=== PATIENT | male | born 2000 | race Caucasian/White ===

== ENCOUNTER 2020-04-10 21:56 | Emergency (ER) | payer MEDICAID, SELFPAY ==
[2020-04-10 21:59] VITALS: BP 151/74; PULSE 103; PULSE 93; RESP 18; TEMP 37.1; O2SAT 96; O2SAT 97; BMI 18.6
[2020-04-10 22:03] VITALS: O2SAT 96
--- NOTE | 2020-04-10 22:53 | ED.VIS.GEN ---
History of Present Illness Chief Complaint: Shortness of Breath Informant: Patient Narrative: 20-year-old male presenting with cough and shortness of breath. Patient symptoms are mild, however he is concerned because his sister was exposed to someone with COVID?19. She is a healthcare worker. She did test positive and she is having mild symptoms. Patient has concern he was exposed. He wishes to be tested for COVID?19. He is able to eat and drink normally. He is making normal urine and stool. He is not requiring oxygen. He does not have chest pain. No nausea or vomiting. Past Medical History - Allergies and Home Meds Allergies/Adverse Reactions: Allergies amoxicillin [From Augmentin] Allergy (Verified 04/10/20 21:57) PT UNSURE OF REACTION clavulanic acid [From Augmentin] Allergy (Verified 04/10/20 21:57) PT UNSURE OF REACTION codeine Allergy (Verified 04/10/20 21:57) Hives sulfamethoxazole [From Bactrim] Allergy (Verified 04/10/20 21:57) Hives trimethoprim [From Bactrim] Allergy (Verified 04/10/20 21:57) Hives Primary Care Physician: NOT,DEFINED [Primary Care Provider] - Past Medical History: - - Unknown cardiac history at 14. He does not follow with anybody regularly. He does not take any cardiac medication. Smoking Status: Former smoker Review of Systems General: Reports: Chills. Denies: Fever Eyes: Denies: Visual changes - bilaterally, Diplopia ENT: Reports: Rhinorrhea, Sore throat Cardiovascular: Denies: Chest pain Respiratory: Reports: Cough. Denies: Dyspnea Gastrointestinal: Denies: Abdominal pain, Nausea, Vomiting Musculoskeletal: Reports: Myalgias Skin: Denies: Rash, Abscess Neurological: Denies: Headache, Weakness Psych: Denies: Depression, Anxiety Endocrine: Denies: Polyuria Hematologic: Denies: Easy bruising Physical Exam Vital Signs/Narrative: Vital Signs Temp Pulse Resp BP Pulse Ox 04/10/20 21:59 98.7 F 93 18 151/74 H 97 Inital Vital Signs reviewed: Yes General: Well nourished, Well developed, No Acute Distress Head: Normocephalic, Atraumatic Eyes: Perrl, EOMI. Negative for: Pale conjunctiva ENT: Moist mucous membranes, No rhinorrhea, TM's clear Cardiovascular: Regular rate, Regular rhythm Respiratory: No distress, CTA bilaterally, Chest nontender Abdomen: Soft, Nontender Back: Nontender Skin: Normal color, No rash Neurological: Alert, Oriented x3 Psychological: Normal affect Diagnostic/Tx/Re-eval Chest X-Ray - ED: 1 View, Normal - Medical Decision Making Patient presents with mild symptoms he is concerned are due to COVID?19 as he had recent exposure. His vital signs are stable and he is afebrile. He is eating and drinking normally. He is making normal urine and stool. He does not have significant medical history. He wishes to be tested for COVID?19. Swab was taken. He was given quarantine precautions. He is given return precautions. I checked a chest x-ray which was negative. Patient will stay home and quarantine until he gets his results or return for any new or worsening symptoms. ED Disposition - Plan for ED Patient: Disposition: Home or Assisted Living Diagnosis: COVID-19, URI, acute Instructions: ED Upper Resp Infec No Abx Tx Referrals: NOT,DEFINED [Primary Care Provider] -
--- NOTE | 2020-04-10 23:16 | RAD_ITS ---
STUDY: X-RAY CHEST REASON FOR EXAM: Male, 20 years old. slight sob, muscle aches, headache -- exposed to covid TECHNIQUE: Single AP portable view of the chest. COMPARISON: None. FINDINGS: Questionable infiltrate seen in the superior hilar region of the right lower lobe versus bronchovascular structures. Otherwise the bilateral lung [place] are clear. There is no demonstrated pleural abnormality. Normal size heart. Normal mediastinum and south. Normal visualized pulmonary arteries. Normal visualized aortic arch and descending thoracic aorta. Normal visualized thoracic spine. Normal visualized ribs, clavicles, and shoulders. There is no demonstrated abnormality of the visualized soft tissue structures of the upper abdomen. RAD/Chest 1 View (Portable) IMPRESSION: 1. Questionable infiltrate seen in the superior hilar region of the right lower lobe versus bronchovascular structures. Otherwise the bilateral lung villela are clear. 2. A noncontrast CT of the chest can be performed for further assessment particularly given the patient''s clinical history. Electronically Signed: Moe Oviedo MD at 23:42 EDT , Service support ,
== END 2020-04-11 00:20 | disposition home or self-care (01) ==
LOC: ED 04-11 00:10
PROVIDERS: Emergency Provider Student in an Organized Health Care Education/Training Program
DX: U07.1 COVID-19 (principal); J06.9 Acute upper respiratory infection, unspecified; Z87.891 Personal history of nicotine dependence
CPT/HCPCS: 71045; 87635; 99282; U0003

== ENCOUNTER 2020-12-29 18:02 | Emergency (ER) | payer MEDICAID, SELFPAY ==
[2020-12-29 18:03] VITALS: BP 129/87; PULSE 87; RESP 15; TEMP 36.5; O2SAT 97; BMI 18.3
--- NOTE | 2020-12-29 18:34 | RAD_ITS ---
INDICATION: PAIN EXAMINATION/TECHNIQUE: X-RAY - RIGHT XR Hand Min 3 Views COMPARISON: None. FINDINGS: Acute minimally displaced fracture of the mid shaft of the fifth metacarpal. No blastic or lytic lesions. No degenerative changes are seen. The soft tissues are unremarkable. RAD/Hand Min 3 Views IMPRESSION: Acute minimally displaced fracture of the mid shaft of the fifth metacarpal. Electronically Signed: Gautam Lin MD at 18:54 EDT Tel , Service support ,
--- NOTE | 2020-12-29 18:35 | RAD_ITS ---
EXAM: XR LEFT HAND COMPLETE, 3 OR MORE VIEWS CLINICAL INDICATION: injury TECHNIQUE: Frontal, lateral and oblique views of the left hand. This report was created using [email or web address] report generation technology. COMPARISON: None. FINDINGS: BONES/JOINTS: Unremarkable. No displaced fracture. No destructive or sclerotic lesions. Visualized joint spaces are unremarkable. SOFT TISSUES: Unremarkable. No soft tissue swelling or gas. No radiopaque foreign body. RAD/Hand Min 3 Views IMPRESSION: Negative left hand x-rays. Electronically Signed: Hemalatha Simpson MD at 19:29 EDT Tel , Service support ,
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
--- NOTE | 2020-12-29 19:50 | ED.DEP ---
ED Disposition - Plan for ED Patient: Instructions: ED Boxer Fracture Referrals: Luis A Sandoval DO [STAFF PHYSICIAN] -
== END 2020-12-29 20:09 | disposition home or self-care (01) ==
PROVIDERS: Emergency Provider Emergency Medicine
DX: S62.306A Unspecified fracture of fifth metacarpal bone, right hand, initial encounter for closed fracture (principal); W22.01XA Walked into wall, initial encounter
CPT/HCPCS: 73130; 99282

== ENCOUNTER 2021-05-05 19:37 | Emergency (ER) | payer MEDICAID, SELFPAY ==
[2021-05-05 19:38] VITALS: BP 122/77; PULSE 89; RESP 16; TEMP 36.9; O2SAT 96; BMI 18.4
--- NOTE | 2021-05-05 19:50 | RAD_ITS ---
INDICATION: CONGESTION EXAMINATION/TECHNIQUE: X-RAY - XR Chest 1 View COMPARISON: 04/10/2020. FINDINGS: The lungs are clear. The cardiomediastinal silhouette is unremarkable. No pleural effusion or pneumothorax. No acute osseous abnormalities. RAD/Chest 1 View IMPRESSION: No acute radiographic abnormalities. Electronically Signed: Gautam Lin MD at 20:18 EDT Tel , Service support ,
--- NOTE | 2021-05-05 22:17 | EX.ED.DYSGE1 ---
HPI History of Present Illness Chief Complaint: Cold Sx Informant: patient Onset/Context/Timing Onset: Days Context: Gradual Onset Timing: Waxes and wanes Current Severity: Mild Maximum Severity: Moderate Narrative Narrative: Patient presents secondary to cough and congestion. He states for the past 5 days or so has had cough and congestion. Cough seems to be improving but he still has significant chest congestion. He denies fever. Patient denies concerns for Covid exposure. He did not receive the Covid vaccine. PFSH PFSH no medical history Home Medications guaifenesin [Mucinex] 1,200 mg PO BID PRN #10 tab 05/05/21 [Rx Last Taken Unknown] Allergy/AdvReac Type Severity Reaction Status Date / Time amoxicillin [From Augmentin] Allergy PT UNSURE Verified 05/05/21 19:40 OF REACTION clavulanic acid Allergy PT UNSURE Verified 05/05/21 19:40 [From Augmentin] OF REACTION codeine Allergy Hives Verified 05/05/21 19:40 sulfamethoxazole Allergy Hives Verified 05/05/21 19:40 [From Bactrim] trimethoprim [From Bactrim] Allergy Hives Verified 05/05/21 19:40 Social History Smoking Status: Current every day smoker tobacco type: cigarettes ROS ROS ED Constitutional Constitutional ED: Denies chills or fever(s) Eyes Eyes: Denies change in vision ENT ENT ED: Denies sore throat Cardiovascular Cardiovascular: Denies chest pain Respiratory/Chest Respiratory/Chest: Reports cough and other Details: Chest congestion ; Denies dyspnea or sputum Gastrointestinal Gastrointestinal: Denies abdominal pain, diarrhea, nausea or vomiting Genitourinary Genitourinary ED: Denies dysuria Musculoskeletal Musculoskeletal: Denies back pain Integumentary Denies rash Neurologic Neurologic: Denies headache(s) or weakness Psychiatric Psychiatric: Denies anxiety or depression Allergic/Immunologic Allergic/Immunologic ED: Denies urticaria EXAM Physical Exam Const Vital Signs: 05/05/21 19:38 05/05/21 21:01 05/05/21 22:44 Temperature 98.5 F Temperature Source Temporal Pulse Rate 89 80 Respiratory Rate 16 16 Respiratory Effort Normal Respiratory Pattern Normal Blood Pressure 122/77 H 117/78 Blood Pressure Mean 92 Pulse Ox 96 98 Oxygen Delivery Method Room Air Positive well nourished and well developed General Appearance ED: well developed HEENT Reports normocephalic and head/scalp atraumatic Eyes PERRL and EOMs intact bilaterally Neck supple Chest Wall inspection of chest normal and palpation of chest normal Resp normal respiratory effort Auscultation: diminished lung sounds Cardio regular rate and regular rhythm GI normal to inspection, nondistended, normoactive bowel sounds Palpation: soft Extremity normal to inspection Neuro oriented x3 and no sensory deficits noted Sensorium / Orientation: alert Motor Exam: strength 5/5 throughout Psych mental status grossly normal Skin no rashes or lesions noted MDM MDM MDM Narrative Medical decision making narrative: Chest x-ray ordered per nursing protocol. Radiography Chest X-Ray - ED: 1 View, Read by ED Physician, Normal, Heart, Lungs, Mediastinum and No Infiltrates Diagnostic Testing: Radiology Impression Chest X-Ray 05/05/21 19:50 IMPRESSION: No acute radiographic abnormalities. Electronically Signed: Gautam Lin MD at 20:18 EDT Tel , Service support , Treatment and Re-Evaluation Comments:: Chest x-ray per my interpretation reveals no infiltrate. Radiologist rotation is reviewed. Test results discussed with patient and family at bedside. He will be given albuterol inhaler here and a dose of Mucinex. Prescription for Mucinex was sent to the pharmacy for him. Return instructions are provided. Discharge Plan Triage Chief Complaint: Cold Sx ED Provider: Elizabeth Boyd Dx/Rx/DC Orders Clinical Impression: Bronchitis Instructions: ED Bronchitis, No Antibiotic (Adult) Prescriptions: New Mucinex 1,200 mg tablet extended release 12hr 1,200 mg PO BID PRN (Reason: congestion) Qty: 10 RF: 0 Primary Care Provider: Care Physician,No Primary Referrals: Doreen Siddiqui MD [STAFF PHYSICIAN] - As Needed Care Physician,No Primary [Primary Care Provider] - Disposition Disposition: Home, Self Care Discharge Date/Time: 05/05/21 22:46
[2021-05-05] MEDS: guaiFENesin 1,200 MG Tablet 1200 MG PO (22:42)
[2021-05-05 22:44] VITALS: BP 117/78; PULSE 80; RESP 16; O2SAT 98
== END 2021-05-05 22:46 | disposition home or self-care (01) ==
LOC: ED 22:25
PROVIDERS: Emergency Provider Emergency Medicine
DX: J40 Bronchitis, not specified as acute or chronic (principal); F17.210 Nicotine dependence, cigarettes, uncomplicated
CPT/HCPCS: 71045; 99283

== ENCOUNTER → 2023-06-28 | Outpatient (CLI) | payer MEDICAID, SELFPAY ==
[2023-06-30 21:07] LABS: QNTFERON TB Mitogen Value > 10.00 IU/mL (.); QNTFERON TB Nil Value 0 IU/mL (.); QNTFERON TB1+ Ag Value 0.04 IU/mL (.); QNTFERON TB2+ Ag Value 0.06 IU/mL (.); QNTIFERON TB Positive Criteria Negative (Negative)
== END | disposition home or self-care (01) ==
PROVIDERS: Referring Provider Physician Assistant; Visit Provider Physician Assistant
DX: Z02.1 Encounter for pre-employment examination (principal)
CPT/HCPCS: 36415; 86480

== ENCOUNTER → 2023-08-30 | Outpatient (CLI) | payer MEDICAID, SELFPAY ==
--- NOTE | 2023-08-30 14:53 | RAD_ITS ---
STUDY: X-RAY - CERVICAL SPINE REASON FOR EXAM: Male, 23 years old. Pain -- RRF, RLF paresthesias TECHNIQUE: 5 view(s) of the cervical spine were obtained. COMPARISON: None FINDINGS: Normal anterior atlantoaxial articulation. Normal odontoid process. There is reversal of the normal cervical lordosis. Normal vertebral bodies and endplates. Normal disc space heights. Normal visualized intervertebral neuroforamina. The soft tissue structures are unremarkable. RAD/Cerv Spine 4 or 5 Views IMPRESSION: There is reversal of the normal cervical lordosis. Electronically Signed: Teddy Ibarra MD at 15:39 EST ,
== END | disposition home or self-care (01) ==
LOC: MTRAD 14:53
PROVIDERS: Referring Provider Physician Assistant; Visit Provider Physician Assistant
DX: R52 Pain, unspecified (principal)
CPT/HCPCS: 72050

== ENCOUNTER 2024-09-09 02:55 | Emergency (ER) | payer SELFPAY ==
[2024-09-09 02:55] VITALS: BP 152/99; PULSE 110; RESP 16; TEMP 37.6; O2SAT 99; BMI 20.9
--- NOTE | 2024-09-09 03:22 | EX.ED.DYSGE1 ---
HPI History of Present Illness Chief Complaint: Ear Problem Informant: patient Narrative Narrative: Patient is a 24-year-old male with no significant past medical history. He states over the past 3 to 4 days he has had nasal congestion and drainage. He states in the last 12 hours he started developing right ear pain. He denies any drainage or discharge from the right ear or injury. He states that he feels he is developing an ear infection and secondary to this comes in for evaluation [facility] Medical History (Updated 09/09/24 @ 03:[address] Kaz Jha, DO) Cellulitis of right thumb Laceration of right thumb Cellulitis of right index finger Laceration of right index finger Cervical radiculopathy Cervical strain Physical exam, pre-employment Home Medications ?Medication ?Instructions ?Recorded ?Last Taken ?Type cefdinir 300 mg capsule 300 mg PO BID 10 days #20 caps 09/09/24 Unknown Rx prednisone 20 mg tablet 40 mg (2 x 20 mg) PO DAILY 7 days 09/09/24 Unknown Rx #14 tabs Allergy/AdvReac Type Severity Reaction Status Date / Time amoxicillin (From Augmentin) Allergy PT UNSURE Verified 09/09/24 02:55 OF REACTION clavulanic acid (From Allergy PT UNSURE Verified 09/09/24 02:55 Augmentin) OF REACTION codeine Allergy Hives Verified 09/09/24 02:55 sulfamethoxazole (From Allergy Hives Verified 09/09/24 02:55 Bactrim) trimethoprim (From Bactrim) Allergy Hives Verified 09/09/24 02:55 Social History Smoking Status: Current every day smoker tobacco type: cigarettes and e-cigarettes ROS ROS ED Constitutional Constitutional ED: Denies chills or fever(s) ENT ENT ED: Reports ear pain right and rhinorrhea; Denies sore throat Cardiovascular Cardiovascular: Denies chest pain Respiratory/Chest Respiratory/Chest: Reports cough; Denies dyspnea Gastrointestinal Gastrointestinal: Denies abdominal pain, diarrhea, nausea or vomiting Genitourinary Genitourinary ED: Denies dysuria Musculoskeletal Musculoskeletal: Denies myalgias Integumentary Denies rash Neurologic Neurologic: Denies headache(s) Hematologic/Lymphatic Hematologic/Lymphatic: Denies easy bleeding or easy bruising Allergic/Immunologic Allergic/Immunologic ED: Denies mouth swelling or tongue swelling EXAM Physical Exam Const Vital Signs: 09/09/24 02:55 09/09/24 03:57 Temperature 99.6 F H 97 F L Temperature Source Oral Pulse Rate 110 H 100 Respiratory Rate 16 18 Blood Pressure 152/99 H 145/93 H Blood Pressure Mean 116 110 Pulse Ox 99 97 Positive well nourished and well developed General Appearance ED: well developed; Negative for pallor HEENT Reports moist mucous membranes HEENT Narrative: Nasal mucosa is hyperemic and boggy with enlarged inferior nasal turbinates There is cobblestoning the posterior pharynx consistent with sinus drainage without airway edema or compromise No secondary findings in the posterior pharynx to suggest infection Left canal and TM are normal Right canal is normal but the TM is erythematous and bulging with positive air-fluid levels consistent with otitis media Eyes PERRL and EOMs intact bilaterally Neck supple Neck Narrative: No nuchal rigidity or meningeal signs Resp normal respiratory effort and clear to auscultation bilaterally Cardio regular rate and regular rhythm Extremity normal to inspection Neuro oriented x3, CN's II-XII intact bilaterally and no sensory deficits noted Sensorium / Orientation: alert Motor Exam: strength 5/5 throughout Psych mental status grossly normal Skin no rashes or lesions noted and no wounds General Skin Exam: Negative for jaundice or pallor MDM MDM MDM Narrative Medical decision making narrative: Patient arrived to ER hypertensive otherwise with stable vitals. He reported symptoms that are most consistent with a viral upper respiratory tract infection leading to right ear pain. Different diagnosis is for viral URI secondary to COVID versus influenza versus RSV versus otitis media versus otitis externa. By exam he does not have otitis externa or malignant otitis externa. He is not hypoxic or in respiratory distress and therefore a COVID influenza or RSV swab would not change therapy and I do not feel there is need to obtain this. As he is not having respiratory distress or hypoxia have low concern for pneumonia and there is no need for chest x-ray. Physical exam did show changes consistent with an otitis media on right which is most likely secondary to eustachian tube dysfunction from his congestion. At this time he will be placed on steroids and antibiotics based on need to reduce pressure and congestion as well as control infection but without signs of systemic infection or tympanic membrane perforation or malignant otitis externa there is no need for further workup and he is otherwise safe for discharge History & Record Review Discussion w/independent historian: Patient Discharge Plan Triage Chief Complaint: Ear Problem ED Provider: Kaz Jha Dx/Rx/DC Orders Clinical Impression: Acute right otitis media, Viral upper respiratory tract infection Instructions: ED Otitis Media Adult, ED URI, Viral W/ Wheezing (Adult) Prescriptions: New prednisone 20 mg tablet 40 mg PO DAILY 7 Days Qty: 14 0RF cefdinir 300 mg capsule 300 mg PO BID 10 Days Qty: 20 0RF Primary Care Provider: Care Physician,No Primary Referrals: Pratik Neumann MD [Med Staff - Active Staff] - Care Physician,No Primary [Primary Care Provider] - Print Language: Taiwanese Disposition Disposition: Home, Self Care Discharge Date/Time: 09/09/24 04:36
[2024-09-09] MEDS: dexAMETHasone 10 MG/ML Vial PO.IVFORM (03:38)
[2024-09-09] MEDS: Cefdinir 300 MG Capsule PO (03:56)
[2024-09-09 03:57] VITALS: BP 145/93; PULSE 100; RESP 18; TEMP 36.1; O2SAT 97
[2024-09-09] MEDS: oxyCODONE 5 MG Tablet 10 MG PO (04:35)
== END 2024-09-09 04:36 | disposition home or self-care (01) ==
PROVIDERS: Emergency Provider Emergency Medicine; Visit Provider Emergency Medicine
DX: H66.91 Otitis media, unspecified, right ear (principal); J06.9 Acute upper respiratory infection, unspecified; Z88.0 Allergy status to penicillin; Z88.1 Allergy status to other antibiotic agents; Z88.2 Allergy status to sulfonamides; F17.210 Nicotine dependence, cigarettes, uncomplicated; F17.290 Nicotine dependence, other tobacco product, uncomplicated
CPT/HCPCS: 99283

== ENCOUNTER 2024-12-28 23:41 | Emergency (ER) | payer SELFPAY ==
[2024-12-28 23:42] VITALS: PULSE 81
[2024-12-28 23:43] VITALS: BP 162/98; PULSE 98; RESP 16; TEMP 36.6; O2SAT 99; BMI 20.4
--- NOTE | 2024-12-29 00:42 | EDS_ITS ---
HPI History of Present Illness Chief Complaint: Shortness of Breath Informant: patient Narrative Narrative: Patient is a 24-year-old male with no significant past medical history. He does state that he typically smokes and/or vapes THC daily. He reports that roughly 4 to 5 days ago he had a sore throat. He states after a few days this improved but then he developed some congestion and coughing. He states today he has felt shaky and brain fog he also reports he has had a few bouts of vomiting. He denies any fevers or chills or known sick contact. However as he feels his symptoms are worsening he presents for evaluation [facility] Medical History (Updated 12/29/24 @ 00:[address] Kaz Jha, DO) Cellulitis of right thumb Laceration of right thumb Cellulitis of right index finger Laceration of right index finger Cervical radiculopathy Cervical strain Physical exam, pre-employment Home Medications ?Medication ?Instructions ?Recorded ?Last Taken ?Type ondansetron 4 mg disintegrating 4 mg PO TID PRN nausea and 12/29/24 Unknown Rx tablet vomiting #21 tabs Allergy/AdvReac Type Severity Reaction Status Date / Time amoxicillin (From Augmentin) Allergy PT UNSURE Verified 12/28/24 23:46 OF REACTION clavulanic acid (From Allergy PT UNSURE Verified 12/28/24 23:46 Augmentin) OF REACTION codeine Allergy Hives Verified 12/28/24 23:46 sulfamethoxazole (From Allergy Hives Verified 12/28/24 23:46 Bactrim) trimethoprim (From Bactrim) Allergy Hives Verified 12/28/24 23:46 Social History Smoking Status: Current every day smoker tobacco type: cigarettes and e- cigarettes ROS ROS ED Constitutional Constitutional ED: Denies chills or fever(s) Eyes Eyes: Denies change in vision ENT ENT ED: Reports rhinorrhea and sore throat Cardiovascular Cardiovascular: Denies chest pain Respiratory/Chest Respiratory/Chest: Reports cough and dyspnea Gastrointestinal Gastrointestinal: Reports nausea and vomiting; Denies abdominal pain or diarrhea Genitourinary Genitourinary ED: Denies dysuria Musculoskeletal Musculoskeletal: Reports myalgias Integumentary Denies rash Neurologic Neurologic: Denies headache(s) Hematologic/Lymphatic Hematologic/Lymphatic: Denies easy bleeding or easy bruising Allergic/Immunologic Allergic/Immunologic ED: Denies mouth swelling or tongue swelling EXAM Physical Exam Const Vital Signs: 12/28/24 23:42 12/28/24 23:43 12/28/24 23:45 Temperature 97.9 F Temperature Source Oral Pulse Rate 81 98 Respiratory Rate 16 Respiratory Effort Normal Blood Pressure 162/98 H Blood Pressure Mean 119 Pulse Ox 99 Oxygen Delivery Method Room Air 12/29/24 00:54 Temperature 97.8 F Temperature Source Pulse Rate 78 Respiratory Rate 16 Respiratory Effort Blood Pressure 149/64 H Blood Pressure Mean 92 Pulse Ox 99 Oxygen Delivery Method Positive well nourished and well developed General Appearance ED: well developed; Negative for pallor HEENT HEENT Narrative: Nasal mucosa is hyperemic and boggy There is cobblestoning noted in the posterior pharynx consistent with sinus drainage without secondary findings to suggest infection No tongue or lip swelling no oral lesions no airway edema or compromise Eyes PERRL and EOMs intact bilaterally General Eye ED: Negative for scleral icterus Neck supple and no JVD Neck Narrative: No nuchal rigidity or meningeal sign Chest Wall palpation of chest normal Resp normal respiratory effort Resp Narrative: No tachypnea nasal flaring retractions or accessory muscle use No grunting or stridor noted No dyspnea with speech There is faint expiratory wheeze noted in bilateral lower lobes Cardio regular rate and regular rhythm Rate: other Other Details: Heart is regular rate and rhythm without murmurs rubs or gallops Radial and carotid pulses are equal and symmetric GI normal to inspection, nondistended, normoactive bowel sounds, non-tender, non- distended and no masses GI Narrative: No voluntary guarding or rigidity or pulsatile mass Auscultation: normoactive bowel sounds Palpation: soft Extremity normal to inspection Extremity Narrative: No asymmetric edema no pitting edema negative Homans' sign bilaterally Neuro oriented x3, CN's II-XII intact bilaterally and no sensory deficits noted Sensorium / Orientation: alert Motor Exam: strength 5/5 throughout Psych Mood & Affect: anxious Skin no rashes or lesions noted and no wounds General Skin Exam: Negative for jaundice or pallor MDM MDM MDM Narrative Medical decision making narrative: Patient arrived to ER hypertensive otherwise with stable vitals. Constellation symptoms is most consistent with a viral infection such as COVID versus influenza versus RSV. Patient also could have potential pneumonia. With his re port of feeling shaky and bouts of vomiting there is concern for electrolyte abnormality or acute kidney injury. I discussed with patient obtaining basic abdominal labs and a chest x-ray and viral swab. He states he does not have insurance and does not want a workup performed. He reports that as his exam does not suggest any obvious signs of severe infection or significant dehydration he would prefer symptomatic treatment and home. Therefore then I will place him on albuterol inhaler to help with the dyspnea as his exam shows mild wheeze and Zofran secondary to the reports of vomiting. However as he is not hypoxic or in respiratory distress or requiring supplemental oxygen there is no need for forcing a workup and is otherwise safe for discharge History & Record Review Discussion w/independent historian: Patient Discharge Plan Triage Chief Complaint: Shortness of Breath ED Provider: Kaz Jha Dx/Rx/DC Orders Clinical Impression: Viral syndrome, Acute bronchospasm Instructions: ED Bronchospasm (Adult), ED Viral Syndrome (Adult) Prescriptions: New ondansetron 4 mg tablet,disintegrating 4 mg PO TID PRN (Reason: nausea and vomiting) Qty: 21 0RF Primary Care Provider: Care Physician,No Primary Referrals: Pratik Neumann MD [Med Staff - Active Staff] - Care Physician,No Primary [Primary Care Provider] - Activity Restrictions/Additional Instructions: Your history exam and symptoms are most consistent with a viral infection. This will last on average approximately 2 weeks and is self-limited. Use the inhaler to help with shortness of breath sensation and the Zofran for nausea and vomiting control. Return to the ER should you have any further concerns Print Language: Telugu Disposition Disposition: Home, Self Care Discharge Date/Time: 12/29/24 00:56
[2024-12-29] MEDS: Ondansetron ODT 4 MG Tablet PO (00:53)
[2024-12-29 00:54] VITALS: BP 149/64; PULSE 78; RESP 16; TEMP 36.6; O2SAT 99
[2024-12-29] MEDS: Albuterol Sulfate 8 gm Inhaler (60 puffs) 2 PUFF INHALATION (00:56)
== END 2024-12-29 00:56 | disposition home or self-care (01) ==
PROVIDERS: Emergency Provider Emergency Medicine; Visit Provider Emergency Medicine
DX: J98.01 Acute bronchospasm (principal); B34.9 Viral infection, unspecified; R11.2 Nausea with vomiting, unspecified; F17.210 Nicotine dependence, cigarettes, uncomplicated; F17.290 Nicotine dependence, other tobacco product, uncomplicated; Z88.0 Allergy status to penicillin; Z88.1 Allergy status to other antibiotic agents
CPT/HCPCS: 94640; 99282

== ENCOUNTER 2025-05-17 11:02 | Emergency (ER) | payer SELFPAY ==
[2025-05-17 11:03] VITALS: BP 129/111; PULSE 164; RESP 18; TEMP 36.6; O2SAT 96; BMI 19.8
--- NOTE | 2025-05-17 11:20 | ED.RN ---
Rn put protocol in place while patient waits for ED bed. Pt refuses bloodwork and IV at this time. Patient states I do not have insurance so I don't want to do bloodwork right now. RN states she understands.
[2025-05-17 11:56] LABS: Hematocrit 49.3 % (40-54); Hemoglobin 17.4 g/dL (13.0-16.5); Immature Granulocytes Count 0.010 X10^3/uL (0.0-0.0); Mean Corp Hgb Conc 35.3 g/dL (32-36); Mean Corpuscular Volume 93.0 fL (80-94); Mean Platelet Vol. 9.1 fl (6.2-12.0); NRBC Flagged by Analyzer 0 % (0-5); Platelet Count 249 K/mm3 (150-450); RBC Distribution Width CV 11.9 % (11.6-14.6); RBC Distribution Width SD 41.3 fl (35.1-43.9); Red Blood Count 5.30 M/mm3 (4.6-6.2); White Blood Count 5.7 K/mm3 (4.4-11.0)
--- NOTE | 2025-05-17 12:39 | EDS_ITS ---
HPI HPI - GI History of Present Illness Chief Complaint: Nausea/Vomiting Informant: patient Abdominal Pain/Flank Pain Onset: Yesterday Context: Gradual Onset Timing: Waxes and wanes Quality: Dull and - (Pressure) Location: RUQ Worsened by: Nothing Relieved by: Nothing Nausea/Vomiting/Emesis GI Symptom: Positive for Nausea and Vomiting Quality: Positive for Nonbilious; Negative for Blood streaks, Coffee ground or Hematemesis Diarrhea/Melena/Hematochezia GI Symptom: Positive for Diarrhea; Negative for Melena or Hematochezia Associated Symptoms Associated Symptoms: Positive for Dysuria; Negative for Frequency or Hematuria Narrative Narrative: Patient presents with abdominal pain, nausea, and vomiting that began yesterday. Patient states his emesis is yellow stomach contents. Patient denies any hematemesis or coffee-ground emesis. Patient states his pain came on gradually. Patient states it waxes and wanes. Patient describes it as dull and pressure. Patient states it is worse over the right upper abdomen. Patient denies any diarrhea, melena, or hematochezia. Patient does admit to some dysuria but denies any frequency or urgency. Patient admits to some subjective chills but denies any fevers. [facility] Medical History Cellulitis of right thumb Laceration of right thumb Cellulitis of right index finger Laceration of right index finger Cervical radiculopathy Cervical strain Physical exam, pre-employment Home Medications ?Medication ?Instructions ?Recorded ?Last Taken ?Type ondansetron 4 mg disintegrating 4 mg PO TID PRN nausea and 05/17/25 Unknown Rx tablet vomiting #10 tabs Allergy/AdvReac Type Severity Reaction Status Date / Time amoxicillin (From Augmentin) Allergy PT UNSURE Verified 05/17/25 11:02 OF REACTION clavulanic acid (From Allergy PT UNSURE Verified 05/17/25 11:02 Augmentin) OF REACTION codeine Allergy Hives Verified 05/17/25 11:02 sulfamethoxazole (From Allergy Hives Verified 05/17/25 11:02 Bactrim) trimethoprim (From Bactrim) Allergy Hives Verified 05/17/25 11:02 Social History (Updated 05/17/25 @ 15:[address] Yonatan Stout, DO) household members: friend(s) housing: apartment Smoking Status: Current every day smoker tobacco type: cigarettes and e- cigarettes alcohol intake: current alcohol intake frequency: 3 or more drinks per day Alcohol type: beer ROS ROS ED Constitutional Constitutional ED: Reports chills; Denies fever(s) Eyes Eyes: Denies blurry vision or change in vision ENT ENT ED: Denies rhinorrhea or sore throat Cardiovascular Cardiovascular: Denies chest pain or palpitations Respiratory/Chest Respiratory/Chest: Denies cough or dyspnea Gastrointestinal Gastrointestinal: Reports abdominal pain, nausea and vomiting; Denies diarrhea or melena Genitourinary Genitourinary ED: Denies dysuria or hematuria Musculoskeletal Musculoskeletal: Denies back pain or neck pain Integumentary Denies abscess or rash Neurologic Neurologic: Denies headache(s) or weakness Allergic/Immunologic Allergic/Immunologic ED: Denies mouth swelling or urticaria EXAM Physical Exam Const Vital Signs: 05/17/25 11:03 Temperature 97.8 F Temperature Source Temporal Pulse Rate 164 H Respiratory Rate 18 Blood Pressure 129/111 H Blood Pressure Mean 117 Pulse Ox 96 Oxygen Delivery Method Room Air Positive well nourished and well developed General Appearance ED: well developed and NAD HEENT Reports moist mucous membranes Neck supple and no JVD Resp normal respiratory effort and clear to auscultation bilaterally Cardio regular rate and regular rhythm GI non-distended Palpation: soft and tender RUQ; Negative for guarding or rebound tenderness present Extremity full ROM Neuro CN's II-XII intact bilaterally, moves all extremities and no sensory deficits noted Sensorium / Orientation: alert Motor Exam: strength 5/5 throughout Psych mental status grossly normal [facility] Lab Data Attestation: I reviewed the patient's lab results. Lab results narrative: CBC was reviewed and was within normal limits. Comprehensive metabolic profile was reviewed. Chloride was slightly low at 91 and CO2 is slightly low at 18. AST was slightly elevated at 122 and ALT was slightly elevated at 207. Lipase was reviewed and was normal at 57. Urinalysis was reviewed. Urine ketones were 150. Urine bilirubin was 1 and urine urobilinogen was 1. There is no evidence of urinary tract infection or hematuria. Urine drug screen was reviewed and was positive for cannabinoids. Serum alcohol level was reviewed and was less than 10.1. Labs: Laboratory Results - last 24 hr 05/17/25 11:51 WBC 5.7 RBC 5.30 Hgb 17.4 H Hct 49.3 MCV 93.0 MCH 32.8 H MCHC 35.3 RDW Std Deviation 41.3 RDW Coeff of Mc 11.9 Plt Count 249 MPV 9.1 Immature Gran % (Auto) 0.200 Neut % (Auto) 71.6 H Lymph % (Auto) 15.3 L [place] % (Auto) 12.0 H Eos % (Auto) 0.2 Baso % (Auto) 0.7 Absolute Neuts (auto) 4.1 Absolute Lymphs (auto) 0.87 Nucleated RBC % 0 Treatment and Re-Evaluation :: Patient was given IV fluids. Patient was given a dose of Zofran. Patient was advised of his findings. Patient does not want to be admitted for detox. Patient states he has a plan to wean himself off of alcohol. Patient was given a prescription for Zofran. Patient was instructed to start with clear liquids and advance his diet as tolerated. Patient was instructed to follow-up with his primary care physician in 5 to 7 days. Patient was instructed to return if worse in any way. Patient understood and was agreeable with the plan. All questions were answered. Discharge Plan Triage Chief Complaint: Nausea/Vomiting ED Provider: Yonatan Stout Dx/Rx/DC Orders Clinical Impression: Nausea and vomiting, Abdominal pain Instructions: ED Vomiting (Adult) Prescriptions: Continued ondansetron 4 mg tablet,disintegrating 4 mg PO TID PRN (Reason: nausea and vomiting) Qty: 10 0RF Primary Care Provider: Care Physician,No Primary Referrals: Care Physician,No Primary [Primary Care Provider] - Diane Maki Meaghan, [employer]NAGER-[employer] [[facility]] - 5-7 Days Print Language: Albanian Disposition Disposition: Home, Self Care
[2025-05-17 12:40] LABS: AST(SGOT) 122 U/L (<=37); Alanine Aminotransfer ALT/SGPT 207 U/L (<=46); Albumin, Serum 5.8 g/dL (3.5-5.0); Alcohol, Blood (Medical)-Serum < 10.1 mg/dL (<=10.0); Alkaline Phosphatase 67 U/L (40-129); Anion Gap 29 (5-15); BUN 7 mg/dL (4-19); BUN/Creat Ratio 6.7 RATIO (10-20); Calcium,Total 10.6 mg/dL (7.6-11.0); Carbon Dioxide 18.7 mmol/L (21.0-32.0); Chloride 91 mmol/L (98-108); Estimated Creatinine Clearance 102.46 ml/min (50-250); Globulin 3.1 g/dL (2.2-4.2); Glucose 97 mg/dL (70-99); Potassium 3.9 mmol/L (3.3-5.1)
[2025-05-17 12:46] VITALS: BP 136/78; BP 136/86; PULSE 73; RESP 18; RESP 19; TEMP 36.6; O2SAT 96; O2SAT 98
[2025-05-17] MEDS: 0.9% Normal Saline (1000mL) 1,000 ML 1000 ML IV (12:51)
[2025-05-17 13:00] VITALS: BP 120/93; PULSE 78; O2SAT 100
[2025-05-17 13:21] LABS: Lipase 57 U/L (13-75)
--- NOTE | 2025-05-17 13:22 | ED.RN ---
pt refusing scns d/t no insurance. pt states he does not want the urine test after being asked to urinate abd pt refusing. this nurse educates pt on reason for urine test. pt is agreeable to do ua when able to urinate.
[2025-05-17 14:00] VITALS: BP 136/89; PULSE 70; O2SAT 99
--- NOTE | 2025-05-17 14:11 | CM.ED ---
Social Work SW met with patient, introduced self and explained role with [facility]. SW asked patient if he would like to speak with Medicaid specialist due to not having insurance. Patient stated he has had Medicaid in the past, started working and was making too much money so he lost coverage. Patient states he is now unemployed again and may be eligible. SW offered to have Medicaid specialist come to ED to speak with patient, patient declined stating he appreciated the offer but he understood the application process and feels that he can take care of his own application. No further needs identified at this time. Jenifer Ambriz, EGG SORTER, DIRECTOR OF OPTIMIZATION
[2025-05-17 14:12] LABS: Squamous Epithelial Cells - UA 0 SEEN /hpf (0-5)
[2025-05-17 14:16] LABS: Color, Urine Yellow (Yellow); Glucose, Dipstick Normal (Normal); Leukocyte Esterase-Dipstick Negative /ul (Negative); Nitrite-Dipstick Negative (Negative); Occult Blood-Urine 50 /ul (Negative); Protein-Dipstick 100 mg/dl (Negative); Specific Gravity, Urine 1.020 (1.002-1.030)
[2025-05-17 14:18] LABS: Urine Bilirubin Dipstick 1 mg/dL (Negative)
[2025-05-17 14:20] LABS: Ketone-Dipstick 150 mg/dl (Negative)
[2025-05-17 14:23] LABS: Fine Granular Cast- Urine 0-5 SEEN /lpf (0-5); Red Blood Cells-Urine 0-5 SEEN /hpf (0-5)
[2025-05-17 14:24] LABS: Mucous, Urine 1+ /hpf (<or=2+)
[2025-05-17 15:00] VITALS: BP 130/87; PULSE 80; O2SAT 100
[2025-05-17 15:24] LABS: Barbiturate Urine NEGATIVE (< 200 ng/mL); Benzodiazepine Urine NEGATIVE (< 200 ng/mL); PCP Urine NEGATIVE (< 25 ng/mL); THC Urine PRESUMPTIVE POSITIVE (< 50 ng/mL)
== END 2025-05-17 16:18 | disposition home or self-care (01) ==
PROVIDERS: Emergency Provider Emergency Medicine; Visit Provider Emergency Medicine
DX: R11.2 Nausea with vomiting, unspecified (principal); R10.9 Unspecified abdominal pain; R19.7 Diarrhea, unspecified; F17.210 Nicotine dependence, cigarettes, uncomplicated; F17.290 Nicotine dependence, other tobacco product, uncomplicated
CPT/HCPCS: 80053; 80307; 81001; 82077; 83690; 85025; 96361; 96374; 96376; 99283; A4216; J2405